=== PATIENT | female | born 1990 | race Caucasian/White ===

== ENCOUNTER → 2017-01-28 | Outpatient (CLI) | payer OTHER ==
[~2017-01-28] MED LIST: ACYC-109 PO; BACL10TA PO; BENZ56AE TP; CODE-54 PO; DCS100C PO; FRS325T PO; Ibuprofen PO; OXYC-309 PO; PREN1TAB19 PO
--- OUTSIDE RECORDS SUMMARY | 2017-01-28 10:07 | XMS REPORT | Continuity of Care Document ---
Author Author [facility] Organization [facility] Address Unknown Phone Unavailable Support Name Relationship Address Phone RAGHU PEPE DO Caregiver [address] [place] [address] EARLFARRAH JACKSON DO Caregiver [address] [place] [address] JOHN BURGOS Next Of Kin [address] [place] [address] Insurance Providers Payer Name Policy Number Subscriber Name Relationship [facility] [id number] Anthony Burgos 01 Advance Directives Directive Response Recorded Date/Time Advance Directives No 08/30/14 7:15pm Health Care Power of Supervisor [employer] No 08/30/14 7:15pm Organ Donor Yes 08/30/14 7:15pm Resuscitation Status Full Code 08/30/14 7:15pm Resuscitation Status Full Code 08/30/14 6:17pm Problems No known problems or medical conditions. Medications Medication Dose Route Sig Days/Qty Instructions Order Date Discontinued Date Status Acyclovir 1 Ea PO THREE TIMES A DAY 21 Qty 07/07/11 08/30/14 Discontinued Oxycodone Hcl/Acetaminophen 1 - 2 Tab PO EVERY 4HRS PRN 40 Qty 08/30/14 Discontinued Baclofen (Lioresal) 1 Tab PO TWICE A DAY 40 Qty 07/07/11 08/30/14 Discontinued Vit/Fe Fumarate/Fa 1 Each PO DAILY 08/30/14 Active Acetaminophen/Codeine 1-2 Tab PO EVERY 4HRS PRN MODERATE TO SEVERE PAIN 30 Qty 09/01/14 Active Benzocaine/Menthol 56 Ml TP DIRECTED PRN PAIN 1 Qty 09/01/14 Active Docusate Sodium 100 Mg PO TWICE A DAY PRN CONSTIPATION 40 Qty 09/01/14 Active Ferrous Sulfate 325 Mg PO DAILY@0700 60 Qty 09/01/14 Active [Ibuprofen] 600 Mg PO EVERY 6 HOURS 60 Qty 09/01/14 Active Social History Social History Problem Response Recorded Date/Time Alcohol Use Denies Use 08/30/2014 6:35pm Recreational Drug Use No 08/30/2014 6:35pm Recent Foreign Travel No 08/30/2014 6:35pm Recent Infectious Disease Exposure No 08/30/2014 6:35pm Hospitalization with Isolation Denies 09/02/2014 2:58pm Sexually Transmitted Disease No 08/30/2014 6:35pm HIV/AIDS No 08/30/2014 6:35pm Smoking Status Never a Smoker 08/30/2014 7:13pm Query Response Start Date Stop Date Smoking Status Never a Smoker Hospital Discharge Instructions Patient Instructions Physician Instructions New, Converted or Re-Newed RX: RX on Chart Additional Follow Up: Yes Orders/Referrals [address] Pepe Activity: Activity as Tolerated Driving Instructions: No Driving for 1 Week NO SMOKING: NO SMOKING Nothing Inside Vagina: No Douching, No [place], No Tampons Discharge Diet: No Restrictions Return to The Hospital For: anything listed below Symptoms to Report to : Pain Increased, Fever Over 101 Degrees F, Vaginal Bleeding Increase, Lightheadedness, Questions/Concerns For Any Problems or Questions: Contact Your Physician Bathing Instructions: Shower Plan of Care Discharge Date 09/02/14 2:30pm Disposition 30 STILL A PATIENT Instructions/Education Provided DISCHARGE VAGINAL DELIVERY DISCHARGE Prescriptions See Medications Section Referrals (Unspecified) 6 Weeks (Unspecified) 6 Weeks Functional Status Query Response Date Recorded Patient Orientation Person Place Time Situation Normal For Age September 02, 2014 2:58pm Allergies, Adverse Reactions, Alerts Allergen Type Severity Reaction Status Last Updated No Known Drug Allergies Active 07/04/11 Immunizations Name Given Type Tetanus Booster (TDap) Less than 5yrs Historical influenza, split (incl. purified surface antigen) 09/01/14 Administered Tdap 09/02/14 Administered Vital Signs Acute Vital Signs Vital Response Date/Time Temperature (Fahrenheit) 96.6 degrees F (97.6 - 99.5) Temperature (Calculated Celsius) 35.36592 degrees C (36.4 - 37.5) Temperature Source Tympanic Pulse Rate (adult) 78 bpm (60 - 90) Respiratory Rate 18 bpm (12 - 24) O2 Sat by Pulse Oximetry 98 % (88 - 100) Blood Pressure 121/66 mm Hg Pain Pain Intensity 3 Height (Feet) 5 feet Height (Inches) 6.00 inches Height (Calculated Centimeters) 167.558989 cm Weight (Pounds) 160 pounds Weight (Calculated Grams) 85229.780 gm Weight (Calculated Kilograms) 72.203540 kilograms Calculated BMI 25.82 Results Test Source Date Result Interp. Ref. Range Comments Alanine Aminotransferase (ALT/SGPT) July 05, 2011 6:40am 26 U/L L 30- 65 Albumin July 05, 2011 6:40am 3.4 G/DL N 3.4-5.0 Alkaline Phosphatase July 05, 2011 6:40am 66 U/L N 50-136 Aspartate Amino Transf (AST/SGOT) July 05, 2011 6:40am 11 U/L L 15-37 BUN/Creatinine Ratio July 05, 2011 6:40am 8 - Basophils # (Auto) July 02, 2011 12:16pm 0.1 10^3/uL N 0.0-0.1 Basophils (%) (Auto) July 02, 2011 12:16pm 1 % N 0-10 Blood Urea Nitrogen July 05, 2011 6:40am 6 MG/DL L 7-18 CSF Appearance July 04, 2011 2:32pm - CSF Color July 04, 2011 2:32pm COLORLESS - CSF Glucose July 04, 2011 2:32pm 59 MG/DL N 50-80 CSF Lymphocytes July 04, 2011 2:32pm Test not performed - CSF Mononuclear WBCs July 04, 2011 2:32pm Test not performed - CSF Polynuclear WBCs July 04, 2011 2:32pm Test not performed - CSF RBC July 04, 2011 2:32pm 0 CELLS N 0-0 CSF Total Protein July 04, 2011 2:32pm 18 MG/DL N 15-45 CSF Tube Number July 04, 2011 2:32pm 4 - CSF VDRL July 04, 2011 2:32pm NON REAC - THIS TEST WAS PERFORMED AT :[facility] [address] [id number] Raquel Carty MD CSF WBC July 04, 2011 2:32pm 1 CELLS N 0-5 Calcium Level July 05, 2011 6:40am 8.1 MG/DL L 8.5-10.1 Carbon Dioxide Level July 05, 2011 6:40am 28 MMOL/L N 21-32 Chloride Level July 05, 2011 6:40am 107 MMOL/L N 101-110 Creatinine July 05, 2011 6:40am 0.8 MG/DL N 0.6-1.3 Eosinophils # (Auto) July 02, 2011 12:16pm 0.0 10^3/uL N 0.0-0.3 Eosinophils (%) (Auto) July 02, 2011 12:16pm 0 % N 0-10 Erythrocyte Sedimentation Rate July 05, 2011 6:40am 8 MM/HR N 0-20 Free Thyroxine July 05, 2011 6:40am 1.11 NG/DL N 0.59-1.17 Glucose Level July 05, 2011 6:40am 91 MG/DL N 74-106 Hematocrit July 05, 2011 6:40am 31 % L 35-52 Hemoglobin July 05, 2011 6:40am 10.8 G/DL DL 11.5-16.0 Lymphocytes # (Auto) July 02, 2011 12:16pm 2.0 X 10^3 N 1.0-4.0 Lymphocytes (%) (Auto) July 02, 2011 12:16pm 24 % N 12-44 Mean Corpuscular Hemoglobin July 05, 2011 6:40am 30 PG N 25-34 Mean Corpuscular Hemoglobin Concent July 05, 2011 6:40am 34 G/DL N 32- 36 Mean Corpuscular Volume July 05, 2011 6:40am 86 FL N 80-99 Mean Platelet Volume July 05, 2011 6:40am 8.8 FL N 7.4-10.4 Monocytes # (Auto) July 02, 2011 12:16pm 0.3 X 10^3 N 0.0-1.0 Monocytes (%) (Auto) July 02, 2011 12:16pm 4 % N 0-12 Neutrophils # (Auto) July 02, 2011 12:16pm 6.0 X 10^3 N 1.8-7.8 Neutrophils (%) (Auto) July 02, 2011 12:16pm 71 % N 42-75 Platelet Count July 05, 2011 6:40am 267 10^3/uL N 130-400 Potassium Level July 05, 2011 6:40am 4.0 MMOL/L N 3.6-5.0 Red Blood Count July 05, 2011 6:40am 3.64 10^6/uL L 4.35-5.85 Red Cell Distribution Width July 05, 2011 6:40am 12.4 % N 10.0-14.5 Sodium Level July 05, 2011 6:40am 139 MMOL/L N 135-145 Thyroid Stimulating Hormone (TSH) July 05, 2011 6:40am 6.35 UIU/ML H 0.34-5.60 Total Bilirubin July 05, 2011 6:40am 0.3 MG/DL N 0.0-1.0 Total Protein July 05, 2011 6:40am 6.4 G/DL N 6.4-8.2 Urine Bacteria July 04, 2011 9:20pm MODERATE H - Has specimen been collected/obtained? YSpecimen Description CLEAN CATCH Urine Bilirubin July 04, 2011 9:20pm NEGATIVE - Has specimen been collected/obtained? YSpecimen Description CLEAN CATCH Urine Casts July 04, 2011 9:20pm NONE - Has specimen been collected /obtained? YSpecimen Description CLEAN CATCH Urine Clarity July 04, 2011 9:20pm CLEAR - Has specimen been collected/obtained? YSpecimen Description CLEAN CATCH Urine Color July 04, 2011 9:20pm YELLOW - Has specimen been collected/obtained? YSpecimen Description CLEAN CATCH Urine Crystals July 04, 2011 9:20pm NONE - Has specimen been collected/obtained? YSpecimen Description CLEAN CATCH Urine Culture Indicated July 04, 2011 9:20pm YES - Has specimen been collected/obtained? YSpecimen Description CLEAN CATCH Urine Glucose (UA) July 04, 2011 9:20pm NEGATIVE - Has specimen been collected/obtained? YSpecimen Description CLEAN CATCH Urine Ketones July 04, 2011 9:20pm NEGATIVE - Has specimen been collected/obtained? YSpecimen Description CLEAN CATCH Urine Leukocyte Esterase July 04, 2011 9:20pm NEGATIVE - Has specimen been collected/obtained? YSpecimen Description CLEAN CATCH Urine Mucus July 04, 2011 9:20pm NEGATIVE - Has specimen been collected/obtained? YSpecimen Description CLEAN CATCH Urine Nitrite July 04, 2011 9:20pm NEGATIVE - Has specimen been collected/obtained? YSpecimen Description CLEAN CATCH Urine Protein July 04, 2011 9:20pm NEGATIVE - Has specimen been collected/obtained? YSpecimen Description CLEAN CATCH Urine RBC July 04, 2011 9:20pm NONE /HPF - Has specimen been collected/obtained? YSpecimen Description CLEAN CATCH Urine Specific [place] July 04, 2011 9:20pm 1.010 L - Has specimen been collected/obtained? YSpecimen Description CLEAN CATCH Urine Squamous Epithelial Cells July 04, 2011 9:20pm 2-5 - Has specimen been collected/obtained? YSpecimen Description CLEAN CATCH Urine Urobilinogen July 04, 2011 9:20pm NORMAL MG/DL - Has specimen been collected/obtained? YSpecimen Description CLEAN CATCH Urine WBC July 04, 2011 9:20pm 0-2 /HPF - Has specimen been collected/obtained? YSpecimen Description CLEAN CATCH Urine pH July 04, 2011 9:20pm 7.0 - Has specimen been collected/ obtained? YSpecimen Description CLEAN CATCH White Blood Count July 05, 2011 6:40am 8.3 10^3/uL N 4.3-11.0 Estimat Glomerular Filtration Rate July 02, 2011 12:16pm > 60 - GFR INTERPRETIVE DATA UNITS FOR ESTIMATED GFR (eGFR): mL/min/1.73 M2 REFERENCE RANGE FOR ESTIMATED GFR (eGFR) eGFR NORMAL eGFR >60 MODERATELY DECREASED eGFR 30-59 SEVERLY DECREASED eGFR 15-29 KIDNEY FAILURE <15 (OR DIALYSIS) Urine RBC (Auto) July 04, 2011 9:20pm NEGATIVE - Has specimen been collected/obtained? YSpecimen Description CLEAN CATCH Blood Culture Peripheral-Rt Ac July 02, 2011 12:22pm No growth Mycobacterial Culture Cerebral Spinal Fluid July 04, 2011 2:32pm Urine Culture Urine-Clean Catch July 04, 2011 9:20pm Procedures Procedure Status Date Provider(s) Anesthesia consultation completed 08/30/14 RAGHU PEPE DO Encounters Encounter Location Date/Time Discharged Inpatient Via [facility] 08/30/14 6:12pm
--- NOTE | 2017-01-28 15:17 | Diagnostic Imaging Report ---
OB ultrasound. INDICATION: Uncertain dates. FINDINGS: There are no prior studies available for comparison. There is a single live fetus in variable presentation. heart motion is noted and a rate of 160 beats per minute was recorded. There are no abnormalities identified. The placenta is anterior and there is no previa. The amniotic fluid volume is within normal limits. The growth parameters are fairly uniform. The growth parameters are as follows: BPD: 4.35, 19 weeks 2 days. Head circumference: 17.49, 20 weeks 1 day. Abdominal circumference: 16.34, 20 weeks 3 days. Femur length: 3.26, 20 weeks 2 days. The estimated weight is 371 g and the LMP percentile is 61%. IMPRESSION: 1. There is a single live fetus approximately 20 weeks 2 days gestation +/- 1 week. EDC is June 15, 2017. 2. There are no abnormalities identified. 3. The growth parameters are fairly uniform. Dictated by: Dictated on workstation # [id number]
== END ==
LOC: RAD 10:03
PROVIDERS: ATTEND Obstetrics & Gynecology
DX: Z34.82 Encounter for supervision of other normal pregnancy, second trimester (principal); Z3A.20 20 weeks gestation of pregnancy
CPT/HCPCS: 76805

== ENCOUNTER 2017-06-08 13:45 | Inpatient (IN) | payer OTHER ==
[~2017-06-08] VITALS: Ht 165.1 cm; Wt 76.3 kg
[2017-06-08] VITALS (38 sets, daily range): BP systolic 111–148; BP diastolic 55–78
[2017-06-08] MEDS ORDERED: OXYTOCIN/NORMAL SALINE 500 ML IV SCH ×2 (14:16→15:28)
[2017-06-08] MEDS ORDERED: AMPICILLIN 2000 MG INJECTION (IM/IV) ONE (14:16)
[2017-06-08] MEDS ORDERED: NS (IVPB) 50 ML ONE (14:16)
[2017-06-08] MEDS ORDERED: D5 LR IV SOLUTION 1,000 ML IV ONE (14:16)
[2017-06-08] MEDS ORDERED: D5 LR IV SOLUTION 1,000 ML IV SCH (14:16)
--- OUTSIDE RECORDS SUMMARY | 2017-06-08 14:22 | XMS REPORT | Continuity of Care Document ---
Author Author [facility] Address Unknown Phone Unavailable Allergies Active Description Code Type Severity Reaction Onset Reported/Identified Relationship to Patient Clinical Status Yes No Known Drug Allergies [id number] Drug Allergy Unknown N/ A 07/04/2011 Medications Problems Date Dx Coded Attending Type Code Diagnosis Diagnosed By 06/28/2014 TATA PALOMINO HOLGER K V06.1 TDAP DX 09/02/2014 RAGHU MARIE DO Ot 285.1 AC POSTHEMORRHAG ANEMIA 09/02/2014 RAGHU MARIE DO Ot 645.11 POST TERM PREG, DELIV W/WO MENTION OF AN 09/02/2014 RAGHU MARIE DO Ot 648.22 ANEMIA-DELIVERED W P/P 09/02/2014 RAGHU MARIE DO Ot 648.91 OTH CURR COND-DELIVERED 09/02/2014 RAGHU MARIE DO Ot 664.21 DEL W 3 DEG LACERAT-DEL 09/02/2014 RAGHU MARIE DO Ot V02.51 GROUP B STREPT CARRIER/SUSPECTED CARRIER 09/02/2014 RAGHU MARIE DO Ot V04.81 ND FOR PROPHYLACTIC VACCIN AND INOCULATI 09/02/2014 RAGHU MARIE DO Ot V07.8 OTHER SPECIFIED PROPHYLACTIC OR TREATMEN 09/02/2014 RAGHU MARIE DO Ot V27.0 DELIVER-SINGLE LIVEBORN 01/29/2017 RAGHU MARIE DO Ot Z34.82 ENCOUNTER FOR SUPRVSN OF NORMAL PREGNANC 01/29/2017 RAGHU MARIE DO Ot Z3A.20 20 WEEKS GESTATION OF 01/30/2017 RAGHU MARIE DO Ot Z34.82 ENCOUNTER FOR SUPRVSN OF NORMAL PREGNANC 01/30/2017 RAGHU MARIE DO Ot Z3A.20 20 WEEKS GESTATION OF 03/12/2017 RAGHU MARIE DO Ot Z34.82 ENCOUNTER FOR SUPRVSN OF NORMAL PREGNANC 03/12/2017 RAGHU MARIE DO Ot Z3A.20 20 WEEKS GESTATION OF 03/12/2017 RAGHU MARIE DO Vinny Ot Z34.82 ENCOUNTER FOR SUPRVSN OF NORMAL PREGNANC 03/12/2017 FENECH DO, RAGHU Casillas Ot Z3A.20 20 WEEKS GESTATION OF 03/12/2017 JOSEECH DORAGHU Ot Z34.82 ENCOUNTER FOR SUPRVSN OF NORMAL PREGNANC 03/12/2017 JOSEECH DO, RAGHU Casillas Ot Z3A.20 20 WEEKS GESTATION OF 03/12/2017 RAGHU MARIE DO Ot Z34.82 ENCOUNTER FOR SUPRVSN OF NORMAL PREGNANC 03/12/2017 JOSEECH DO, RAGHU Casillas Ot Z3A.20 20 WEEKS GESTATION OF Procedures Code Description Performed By Performed On 75.62 REPAIR OB LAC RECT/ANUS 08/31/2014 Results Encounters ACCT No. Visit Date/Time Discharge Status Pt. Type Provider Facility Loc./Unit Complaint [id number] 06/28/2014 16:35:00 06/28/2014 23: 59:59 CLS Outpatient HOLGER PAYTON DO
[2017-06-08] MEDS ORDERED: AMPICILLIN INJECTION 2,000 MG in NS (IVPB) 50 ML IV ONE (14:30)
[2017-06-08] MEDS ORDERED: LIDOCAINE/EPI 1%-1:200,000 (XYLOCAINE) 30 ML VIAL INJ PRN (14:30)
[2017-06-08 14:54] LABS: BASOPHILS % (AUTO) 0 % (0-10); EOSINOPHILS % (AUTO) 0 % (0-10); LYMPHOCYTES # (AUTO) 1.8 X 10^3 (1.0-4.0); LYMPHOCYTES % (AUTO) 13 % (12-44); MEAN CORPUSCULAR HEMOGLOBIN 30 PG (25-34); MEAN CORPUSCULAR HGB CONC 34 G/DL (32-36); MEAN CORPUSCULAR VOLUME 87 FL (80-99); MEAN PLATELET VOLUME 10.4 FL (7.4-10.4); MONOCYTES # (AUTO) 0.7 X 10^3 (0.0-1.0); MONOCYTES % (AUTO) 5 % (0-12); NEUTROPHILS # (AUTO) 11.1 X 10^3 (1.8-7.8); NEUTROPHILS % (AUTO) 81 % (42-75); PLATELET COUNT 240 10^3/uL (130-400); RED BLOOD COUNT 4.14 10^6/uL (4.35-5.85); RED CELL DISTRIBUTION WIDTH 13.9 % (10.0-14.5); WHITE BLOOD COUNT 13.7 10^3/uL (4.3-11.0)
[2017-06-08] MEDS ORDERED: oxyCODONE/APAP 10/325MG (PERCOCET 10) TABLET PO PRN (15:30)
[2017-06-08] MEDS ORDERED: MEASLES,MUMPS,RUBELLA 1 EA INJ SC ONE (15:30)
[2017-06-08] MEDS ORDERED: TETANUS,DIPTH,PERTUSS P/F (BOOSTRIX) 0.5 ML VIAL IM ONE (15:30)
[2017-06-08] MEDS ORDERED: BENZOCAINE/MENTHOL (DERMOPLAST) 56 ML CAN TP PRN (15:30)
[2017-06-08] MEDS ORDERED: KETOROLAC 30 MG/ML VIAL IV SCH (15:30)
--- NOTE | 2017-06-08 15:38 | History & Physical ---
History and Physical Date Seen by Provider: Jun 08, 2017 Time Seen by Provider: 15:34 this patient is a 26-year-old patient of Dr. Olsen an eye covering in his absence. She presented with complaint of rupture membranes and was found to be nitrazine positive. She is 39 weeks and 1 day in gestation. She has had no problems with this although she did have a GBS positive urine sometime during this . He is having occasional contractions. Denies bleeding. Allergies are none Occasions are vitamins S medical history, past surgical history, obstetric history, family history, and social histories are per the antepartum record HEENT exam is normal Neck is supple no lymphadenopathy no thyromegaly Abdomen is gravid soft nontender nondistended Extremities show clubbing cyanosis. There is no Homans sign. Pelvic exam per the presenting and delivery nurse shows a cervix that is 3 cm dilated. Presenting part is the vertex. Nitrazine is positive. monitor shows occasional contractions. There is a normal heart rate pattern. Laboratory Tests 06/08/17 14:35 hemoglobin is somewhat elevated for , white blood cell count is normal , the count is normal assessment and plan 39-1/7 weeks gestation with PROM. Patient had a GBS positive urine culture. She has been started on ampicillin. We will augment her contractions after 2 hours of past from the loading dose of ampicillin. We anticipate a vaginal delivery. PROM Allergies and Home Medications Allergies Coded Allergies: No Known Drug Allergies (Unverified , 07/04/11) Home Medications Acetaminophen/Codeine 1 Tab Tablet, 1-2 TAB PO Q4H PRN for MODERATE TO SEVERE PAIN, #30 Prescribed by: RAGHU MARIE on 09/01/1426 Benzocaine/Menthol 56 Ml Aerosol, 56 ML TP UD PRN for PAIN, #1 Prescribed by: RAGHU MARIE on 09/01/14 0826 Docusate Sodium 100 Mg Cap, 100 MG PO BID PRN for CONSTIPATION, #40 Prescribed by: RAGHU MARIE on 09/01/14825 Ferrous Sulfate 325 Mg Tab, 325 MG PO DAILY@0700, #60 Prescribed by: RAGHU MARIE on 09/01/14 08 Vit/Fe Fumarate/Fa 1 Each Tablet, 1 EACH PO DAILY, (Reported) [Ibuprofen] 600 MG TAB, 600 MG PO Q6H, #60 Prescribed by: RAGHU MARIE on 09/01/14 0826 Clinical Quality Measures DVT/VTE Risk/Contraindication: Risk Factor Score Per Nursin RFS Level Per Nursing on Admit: 1=Low/No VTE PPX TONY FRANCO MD Jun 08, 2017 3:38 pm
[2017-06-08] MEDS ORDERED: LACTATED RINGERS 1,000 ML IV ONE ×5 (16:10→17:45)
[2017-06-08] MEDS ORDERED: SUFENTA 0.6MCG/ML BUPIVA 0.125 100 ML ONE (16:22)
[2017-06-08] MEDS ORDERED: LIDOCAINE PF 2% 5 ML (XYLOCAINE) VIAL ONE ×2 (17:07→17:45)
[2017-06-08] MEDS ORDERED: BUPIVACAINE 0.25% 30 ML (SENSORCAINE) VIAL ONE (17:07)
[2017-06-08] MEDS ORDERED: fentaNYL INJECTION 100 MCG/2 ML AMP ONE (17:07)
[2017-06-08] MEDS ORDERED: EPIDURAL (SUFENTA 0.6MCG/ML BUPIVA 0.125%) 100 ML BAG EPI PRN ×2 (17:45)
[2017-06-08] MEDS ORDERED: NALOXONE 0.4 MG/ML 1 ML (NARCAN) VIAL IV PRN ×2 (17:45)
[2017-06-08] MEDS ORDERED: ONDANSETRON 4 MG/2 ML (SDV) Z0FRAN IV PRN ×2 (17:45)
[2017-06-08] MEDS ORDERED: AMPICILLIN INJECTION 1,000 MG in NS (IVPB) 50 ML IV SCH (18:30)
[2017-06-08] MEDS ORDERED: CATHETER FLUSH 10 ML SYR IV SCH (22:00)
[2017-06-08] MEDS: KETOROLAC 30 MG/ML VIAL IV SCH (23:25)
[2017-06-08] MEDS: DOCUSATE SODIUM 100 MG (COLACE) CAP PO SCH (23:27)
[2017-06-09] VITALS (8 sets, daily range): BP systolic 114–121; BP diastolic 57–72
[2017-06-09] MEDS: KETOROLAC 30 MG/ML VIAL IV SCH (05:25)
--- NOTE | 2017-06-09 09:06 | Progress Note-Standard ---
Standard Progress Note Progress Notes/Assess & Plan Date Seen by Provider: Jun 09, 2017 Time Seen by Provider: 09:05 Progress/Assessment & Plan this patient is without complaint. She is ambulating, voiding, tolerating by mouth well, denies chest pain, denies nausea vomiting, denies headache, denies shortness of breath. Patient has good pain control. Vital Signs Date Time Temp Pulse Resp B/P (MAP) Pulse Ox O2 Delivery O2 Flow Rate FiO2 06/09/17 05:15 97.6 77 16 115/67 Room Air 06/09/17 02:00 98.1 75 16 120/61 Room Air 06/09/17 00:00 89 16 117/57 Room Air 06/08/17 23:15 80 16 111/59 Room Air 06/08/17 23:00 86 16 117/58 Room Air 06/08/17 22:45 99.6 85 16 117/65 Room Air 06/08/17 22:30 105 16 124/67 Room Air 06/08/17 22:00 101.5 108 18 131/60 Room Air 06/08/17 21:50 129 18 143/70 99 Room Air 06/08/17 21:35 100.4 104 18 112/61 98 Room Air 06/08/17 21:20 103 18 130/64 98 Room Air 06/08/17 21:05 100 18 133/70 97 Room Air 06/08/17 20:50 99 18 122/67 97 Room Air 06/08/17 20:35 94 18 112/55 98 Room Air 06/08/17 20:20 99.4 104 18 128/65 99 Room Air 06/08/17 20:05 109 18 121/60 98 Room Air 06/08/17 19:50 97 18 114/55 98 Room Air 06/08/17 19:35 101 18 114/64 98 Room Air 06/08/17 19:20 96 18 125/72 99 Room Air 06/08/17 19:15 103 18 130/59 100 Room Air 06/08/17 19:00 99.3 100 18 120/58 99 Room Air 06/08/17 18:45 109 18 126/60 100 Room Air 06/08/17 18:30 107 18 136/59 99 Room Air 06/08/17 18:15 105 18 139/66 99 Room Air 7/15/17 18:00 92 18 130/65 99 Room Air 06/08/17 17:45 85 18 125/62 98 Room Air 06/08/17 17:30 100.2 93 18 118/59 98 Room Air 06/08/17 17:29 97 18 121/60 98 Room Air 06/08/17 17:25 95 18 116/58 98 Room Air 06/08/17 17:23 100 18 119/56 98 Room Air 06/08/17 17:22 94 18 122/58 98 Room Air 06/08/17 17:20 90 18 120/59 99 Room Air 06/08/17 17:15 106 18 148/66 Room Air 06/08/17 17:14 103 18 137/70 100 Room Air 06/08/17 17:07 106 18 138/71 Room Air 06/08/17 17:00 90 18 128/60 Room Air 06/08/17 16:45 83 18 130/62 Room Air 06/08/17 16:30 99.1 92 18 122/60 Room Air 06/08/17 16:00 85 18 128/71 Room Air 06/08/17 15:30 99.9 106 18 128/69 Room Air 06/08/17 14:00 99.9 103 18 138/78 Room Air I & O 06/09/17 07:00 Intake Total 2600 ml Balance 2600 ml vital signs are stable. Patient is afebrile. Abdomen is benign. Fundus is firm below the umbilicus nontender. extremities show no clubbing or cyanosis. There is no Homans sign. There is some pretibial pitting edema but that is normal. assessment and plan post day number 1 status post term spontaneous vaginal delivery doing well. Plan is for routine convalescence care today discharge home tomorrow TONY FRANCO MD Jun 09, 2017 9:06 am
[2017-06-09] MEDS ORDERED: OXYC-465 PO (09:08)
[2017-06-09] MEDS ORDERED: DOCU100C37 PO (09:08)
[2017-06-09] MEDS ORDERED: Ibuprofen PO (09:08)
--- NOTE | 2017-06-09 09:09 | Discharge Instructions ---
Discharge Instructions Discharge Medications New, Converted or Re-Newed RX: RX on Chart Patient Instructions Patient Instructions: as directed Return to The Hospital For: as directed Activity & Diet Discharge Diet: No Restrictions Activity as Tolerated: No Orders-Post D/C & Referrals Follow Up Appt: Call to make follow up appt. for patient in [address] Pepe. Activity Per routine post vaginal delivery instructions. Diet as tolerated Patient may shower or tub bathe as desired. TNOY FRANCO MD Jun 09, 2017 9:09 am
[2017-06-09] MEDS ORDERED: TETANUS,DIPTH,PERTUSS P/F (BOOSTRIX) 0.5 ML VIAL IM ONE (09:26)
[2017-06-09] MEDS: DOCUSATE SODIUM 100 MG (COLACE) CAP PO SCH ×2 (09:39→20:55)
--- NOTE | 2017-06-09 10:21 | Anesthesia-Regional Post-Op ---
Regional Patient Condition Mental Status: Alert, Oriented x3 Circulation: Same as Pre-Op Headache: Absent Sensation: Full Recovery Motor Block: Absent Post Op Complications Complications None Follow Up Care/Instructions Patient Instructions None needed. Anesthesia/Patient Condition Patient is doing well, no complaints, stable vital signs, no apparent adverse anesthesia problems. No complications reported per nursing. MAYRA MURILLO CRNA Jun 09, 2017 10:21
[2017-06-09] MEDS: IBUPROFEN 800 MG (MOTRIN) TAB PO SCH ×2 (12:00→18:10)
[2017-06-10 00:50] VITALS: BP 123/67
[2017-06-10] MEDS: IBUPROFEN 800 MG (MOTRIN) TAB PO SCH ×2 (00:50→07:16)
--- NOTE | 2017-06-10 02:37 | PROCEDURE REPORT ---
PROCEDURE PHYSICIAN: TONY FRANCO DATE OF PROCEDURE: 06/08/2017 DELIVERY NOTE: The patient delivered by term spontaneous vaginal delivery of a viable female infant with Apgars of 8 and 9 at 1 and 5 minutes respectfully, weight of 7 pounds 9 ounces. time was 2157. Cord blood pH is pending. The patient delivered over a midline episiotomy that was performed at her request, under epidural augmented with local analgesia in the perineum. The was bulb suctioned on delivery of the head and again on completion of delivery. The umbilical cord, when pulseless, was doubly clamped, father cut the cord, baby was passed to mom's abdomen. The placenta delivered very promptly, spontaneously Lyn, It was normal with a 3 vessel cord. The cervix, vagina rectum and perineum were examined and found intact except for the midline episiotomy that was repaired with a single suture of 3-0 Vicryl in the usual manner to good hemostasis and to good reapproximation. Sponge and needle counts were correct on completion of delivery and repair. Estimated blood loss was around 250 mL. The patient tolerated delivery and repair well and recovered in the LDR. The baby remained with the mom. Job ID: [id number] Dictated Date: 06/08/2017 22:13:20 Heliarc Welder Date: 06/10/2017 02:33:41 / carina
[2017-06-10 07:16] VITALS: BP 108/69
--- NOTE | 2017-06-10 08:04 | Progress Note-Standard ---
Standard Progress Note Progress Notes/Assess & Plan Date Seen by Provider: Jun 10, 2017 Time Seen by Provider: 08:03 Progress/Assessment & Plan this patient is without complaint. She is ambulating, voiding, tolerating by mouth well, denies chest pain, denies nausea vomiting, denies headache, denies shortness of breath. Patient has good pain control. Vital Signs Date Time Temp Pulse Resp B/P (MAP) Pulse Ox O2 Delivery O2 Flow Rate FiO2 06/09/17 05:15 97.6 77 16 115/67 Room Air 06/09/17 02:00 98.1 75 16 120/61 Room Air 06/09/17 00:00 89 16 117/57 Room Air 06/08/17 23:15 80 16 111/59 Room Air 06/08/17 23:00 86 16 117/58 Room Air 06/08/17 22:45 99.6 85 16 117/65 Room Air 06/08/17 22:30 105 16 124/67 Room Air 06/08/17 22:00 101.5 108 18 131/60 Room Air 06/08/17 21:50 129 18 143/70 99 Room Air 06/08/17 21:35 100.4 104 18 112/61 98 Room Air 06/08/17 21:20 103 18 130/64 98 Room Air 06/08/17 21:05 100 18 133/70 97 Room Air 06/08/17 20:50 99 18 122/67 97 Room Air 06/08/17 20:35 94 18 112/55 98 Room Air 06/08/17 20:20 99.4 104 18 128/65 99 Room Air 06/08/17 20:05 109 18 121/60 98 Room Air 06/08/17 19:50 97 18 114/55 98 Room Air 06/08/17 19:35 101 18 114/64 98 Room Air 06/08/17 19:20 96 18 125/72 99 Room Air 06/08/17 19:15 103 18 130/59 100 Room Air 06/08/17 19:00 99.3 100 18 120/58 99 Room Air 06/08/17 18:45 109 18 126/60 100 Room Air 06/08/17 18:30 107 18 136/59 99 Room Air 06/08/17 18:15 105 18 139/66 99 Room Air 06/08/17 18:00 92 18 130/65 99 Room Air 06/08/17 17:45 85 18 125/62 98 Room Air 06/08/17 17:30 100.2 93 18 118/59 98 Room Air 06/08/17 17:29 97 18 121/60 98 Room Air 06/08/17 17:25 95 18 116/58 98 Room Air 06/08/17 17:23 100 18 119/56 98 Room Air 06/08/17 17:22 94 18 122/58 98 Room Air 06/08/17 17:20 90 18 120/59 99 Room Air 06/08/17 17:15 106 18 148/66 Room Air 06/08/17 17:14 103 18 137/70 100 Room Air 06/08/17 17:07 106 18 138/71 Room Air 06/08/17 17:00 90 18 128/60 Room Air 06/08/17 16:45 83 18 130/62 Room Air 06/08/17 16:30 99.1 92 18 122/60 Room Air 06/08/17 16:00 85 18 128/71 Room Air 06/08/17 15:30 99.9 106 18 128/69 Room Air 06/08/17 14:00 99.9 103 18 138/78 Room Air I & O 06/09/17 07:00 Intake Total 2600 ml Balance 2600 ml vital signs are stable. Patient is afebrile. Abdomen is benign. Fundus is firm below the umbilicus nontender. extremities show no clubbing or cyanosis. There is no Homans sign. There is some pretibial pitting edema but that is normal. assessment and plan post day number 1 status post term spontaneous vaginal delivery doing well. Plan is for routine convalescence care today discharge home tomorrow June 10, 2017 Patient is without complaint per her . She is ambulating, voiding, tolerating by mouth well, has good pain control, she is requesting discharge home. Vital Signs Date Time Temp Pulse Resp B/P (MAP) Pulse Ox O2 Delivery O2 Flow Rate FiO2 06/10/17 07:16 97.5 77 18 108/69 98 Room Air 06/10/17 00:50 97.3 73 18 123/67 98 Room Air 06/09/17 20:55 97.7 81 18 119/69 98 Room Air 06/09/17 16:29 98.1 78 18 115/68 98 Room Air 06/09/17 11:56 98.0 87 18 114/72 98 Room Air 06/09/17 11:31 97.8 78 17 118/72 97 Room Air 06/09/17 08:25 98.7 87 18 121/65 98 Room Air vital signs are stable patient is afebrile. Patient is in the shower - physical exam was deferred Assessment and plan day number 2 status post term spontaneous vaginal delivery doing well. Plan is for discharge home today. I will see this patient later. Final Diagnosis 39 week gestation with term spontaneous vaginal delivery TONY FRANCO MD Jun 10, 2017 8:04 am
[2017-06-10] MEDS: DOCUSATE SODIUM 100 MG (COLACE) CAP PO SCH (09:34)
== END 2017-06-10 12:00 | disposition home or self-care (01) | DRG 775 ==
LOC: WSo 13:45 → LDRP 13:46 → WSo 14:07 → LDRP 14:07
PROVIDERS: ADMIT Obstetrics & Gynecology; ATTEND Obstetrics & Gynecology
PROC: 10E0XZZ Delivery of Products of Conception, External Approach (ICD-10-PCS; principal; 2017-06-08)
PROC: 0W8NXZZ Division of Female Perineum, External Approach (ICD-10-PCS; 2017-06-08)
DX: O99.824 Streptococcus B carrier state complicating childbirth (principal); Z37.0 Single live birth; Z3A.39 39 weeks gestation of pregnancy; Z23 Encounter for immunization
CPT/HCPCS: 36415; 83033; 85025; 86850; 86900; 86901; 90715; 99212

== ENCOUNTER → 2017-10-23 | Outpatient (CLI) | payer OTHER ==
[~2017-10-23] MED LIST changes: +DOCU100C37 PO; +OXYC-465 PO
--- NOTE | 2017-10-23 13:19 | Diagnostic Imaging Report ---
Transabdominal and transvaginal pelvic ultrasound. INDICATION: Cystitis. Hematuria. Pelvic pain. FINDINGS: The uterus is 7 x 4.3 x 3.3 cm. The endometrial stripe is 4 mm in thickness. There is an IUD in place. The myometrium is slightly heterogeneous with no discrete mass seen. The right ovary is 2.9 x 2.9 x 1.6 cm with arterial and venous waveforms seen. The left ovary demonstrates arterial and venous waveforms as well. IMPRESSION: No definite abnormality. Dictated by: Dictated on workstation # [id number]
== END ==
LOC: RAD 10:51
PROVIDERS: ATTEND Family Medicine
DX: N30.91 Cystitis, unspecified with hematuria (principal)
CPT/HCPCS: 76830; 76856